=== PATIENT | female | born 1970 | race Two or more races ===

== ENCOUNTER 2025-07-24 15:06 | Outpatient (CLI) | payer OTHER ==
[2025-07-24 15:45] LABS: Albumin 4.7 g/dL (3.2-4.8); Alkaline Phosphatase 57 U/L (46-116); Bilirubin, Total 0.4 mg/dL (0.2-1.0); Creatine Kinase IFCC 94 U/L (34-145); Total Protein 7.7 g/dL (5.7-8.2)
[2025-07-24 15:46] LABS: Alanine Aminotransferase 63 U/L (7-40); Bilirubin, Direct < 0.1 mg/dL (<0.3)
== END 2025-07-24 17:00 | disposition home or self-care (01) ==
LOC: LAB 15:06
PROVIDERS: ATTEND Family Medicine
DX: R79.89 Other specified abnormal findings of blood chemistry (principal)
CPT/HCPCS: 36415; 80076; 82550